=== PATIENT | male | born 1970 | race African-American/Black ===

== ENCOUNTER 2023-07-04 09:31 | Emergency (ER) | payer SELFPAY ==
[2023-07-04] VITALS (10 sets, daily range): BP systolic 157–169; BP diastolic 88–100; PULSE 72–88; RESP 17–22; TEMP 37.2–37.3; O2SAT 91–99
--- NOTE | ~2023-07-04 | XR_ITS ---
Portable chest x-ray Comparison: None Clinical History: Shortness of breath Findings: Lungs are clear, without focal consolidation or pleural effusion. Cardiomediastinal silho uette is stable. Bones and soft tissues are unremarkable. Impression: Normal chest Reviewed, dictated and finalized at [facility]. NING FEEDER Impression: Normal chest
--- NOTE | ~2023-07-04 | CT_ITS ---
Clinical Indication: Shortness of breath CT Scan of the Chest with Contrast: Technique: Contiguous sections were acquired throughout the chest after intravenous administration of 100 cc of Omnipaque 350. Dose reduction technique was used on this scan by utilizing automated expos ure control and iterative reconstruction technique. The dose-length product (DLP) was 345.59 mGy-cm. Findings: There is no evidence of any significant mediastinal, hilar or axillary lymphadenopathy. There is no f illing defect in the pulmonary arterial tree to suggest pulmonary embolus. There is no evidence of ao rtic dissection or aneurysm. There is no evidence of pleural or pericardial effusion. The lungs are clear. No pulmonary nodules or infiltrates are noted. Images through the upper abdomen reveal calcified gallstones. Impression: No evidence of pulmonary embolus, aortic dissection, or aortic aneurysm. Clear lungs. Reviewed, dictated and finalized at [facility]. APPRENTICE Impression: No evidence of pulmonary embolus, aortic dissection, or aortic aneurysm. Clear lungs.
--- NOTE | 2023-07-04 09:36 | ED.AMS ---
HPI - Altered Mental Status General Chief Complaint: Shortness of Breath/Dyspnea Stated Complaint: Asthma Discharge Plan Discharge Follow-up/Referrals: UNKNOWN,DOCTOR [Primary Care Provider] -
[2023-07-04 09:40] LABS: Glucose Point of Care 123 mg/dl (65-105)
--- NOTE | 2023-07-04 09:45 | ECG_ITS ---
Measurements Intervals [place] Rate: 54 P: -56 WI: 113 QRS: 61 QRSD: 102 T: 36 QT: 431 QTc: 409 Interpretive Statements SINUS BRADYCARDIA WITH SHORT WI INTERVAL BASELINE ARTIFACT- I, II, III BORDERLINE ECG NO PREVIOUS ECG AVAILABLE FOR COMPARISON Electronically Signed On 07-04-2023 10:20:07 [employer] MACHINE OPERATOR by Rohith Capps D.O.
--- NOTE | 2023-07-04 09:45 | ED.SOB ---
HPI - SOB/Dyspnea General Chief Complaint: Shortness of Breath/Dyspnea Stated Complaint: Asthma Source: patient Mode of arrival: ambulatory Limitations: no limitations History of Present Illness HPI Narrative: 52-year-old male, smoker with a history of asthma with prior mechanical intubation for respiratory failure secondary to asthma, Seasonal allergies presents to the ER with -- worsening shortness of breath over the past few days. The patient has bronchodilators which have not worked. -- Bilateral wheezing. -- nonproductive cough -- The patient is tearful. Patient was traveling straight from [place] and is on his way to [place] when his car broke down. No chest pain. no fever or chills. has been hospitalized for pneumonia/asthma exacerbation blood sugar was noted to be 126. MD elicited complaint: shortness of breath, cough and anxiety Pertinent past history: asthma Onset (ago): day(s) ( Two days) Timing: constant Severity: severe Exacerbating factors: exertion Relieving factors: nothing Known history of: asthma Associated symptoms: denies other symptoms Related Data Home oxygen amount: none Home Medications Medication Instructions Recorded Confirmed albuterol sulfate 90 mcg/actuation 2 puff inhalation QID PRN 07/04/23 07/04/23 aerosol inhaler (ProAir HFA) Shortness Of Breath Or Wheezing Allergies Allergy/AdvReac Type Severity Reaction Status Date / Time Penicillins Allergy Unknown Verified 07/04/23 11:31 Review of Systems Review of Systems: All systems reviewed & are unremarkable except as noted in HPI and below Constitutional: Constitutional: Reports as per HPI and Reports no additional constitutional complaints Eyes: Eyes: Reports as per HPI and Reports no additional eye complaints ENT: Reports system reviewed and no additional complaints, except as documented and Reports as per HPI Cardiovascular: Cardiovascular: Reports as per HPI and Reports no additional cardiovascular complaints Respiratory: Respiratory: Reports as per HPI, Reports no additional respiratory complaints, Reports cough, Reports dyspnea and Reports wheezing Gastrointestinal: Gastrointestinal: Reports as per HPI and Reports no additional gastrointestinal complaints Genitourinary: Genitourinary: Reports no additional male genitourinary complaints and Reports as per HPI Musculoskeletal: Musculoskeletal: Reports no additional musculoskeletal complaints and Reports as per HPI Integumentary/Breasts: Skin/Breast: Reports system reviewed and no additional complaints, except as docu and Reports as per HPI Neurologic: Reports system reviewed and no additional complaints, except as documented and Reports as per HPI Psychiatric: Psychiatric: Reports no additional psychiatric complaints and Reports as per HPI Comments: Patient denies any history of depression or suicidal ideation. Endocrine: Endocrine: Reports no additional endocrine complaints and Reports as per HPI Hematologic/Lymphatic: Hematologic/Lymphatic: Reports no additional hematologic/lymphatic complaints and Reports as per HPI Allergic/Immunologic: Allergic/Immunologic: Reports no additional allergic/immunologic complaints and Reports as per HPI [facility] Past Medical History Medical History (Updated 07/04/23 @ 11:46 by David Gar MD) Asthma Exam Narrative: hypertension with a blood pressure 157/100. Respiratory rate of 20 and an oxygen saturation of 95% on room air. Patient has increased respiratory rate of 22. Const: General: ill appearing Nutritional Appearance: well nourished Orientation/consciousness: patient oriented x3 Limitations: no limitations HENMT: Head: normal to inspection Ears: external ears normal Face/Nose/Sinus: Normal external nose present Face and sinus: normal facial exam Mouth: Yes Normal oral and palatal mucosa present Throat: posterior oropharynx normal Eyes: Conjunctivae: conjunctivae normal Pupils: Equal,
[2023-07-04] MEDS: IPRATROPIUM 0.5 MG/ALBUTEROL SULFATE 2.5 MG AMPUL.NEB 3 ML INHALATION (09:53)
[2023-07-04] MEDS: methylPREDNISolone SOD SUCC 125 MG VIAL IV PUSH (10:00)
[2023-07-04 10:09] LABS: Base Excess ABG -1.5 mmol/L (0-2); HCO3 ABG 24.2 mmol/L (23-29); Oxygen Content ABG 22.9 %vol (16.0-22.0); Oxygen Saturation ABG 92.1 % (95-97); Oxyhemoglobin 88.7 % (94-100); PCO2 ABG 44.3 mmHg (35-45); PO2 ABG 66.6 mmHg (80-90); Total Hemoglobin 18.4 g/dL (12.0-18.0); pH ABG 7.36 (7.35-7.45)
[2023-07-04 10:10] LABS: Device ROOM AIR; Modified Allen's Test Pass; Site Drawn LEFT RADIAL
[2023-07-04 10:12] LABS: Basophils Absolute Auto 0.06 K/mm3 (0.00-0.10); Basophils Percent Auto 0.6 % (0.0-1.0); Eosinophils Absolute Auto 0.65 K/mm3 (0.02-0.50); Eosinophils Percent Auto 6.8 % (1.0-6.0); Hematocrit 50.7 % (40.0-54.0); Hemoglobin 17.3 g/dL (14.0-18.0); Immature Granulocyte Absolute 0.02 K/mm3 (0.00-0.00); Immature Granulocyte Percent A 0.2 % (0.0-0.0); Lymphocytes Absolute Auto 1.84 K/mm3 (1.10-4.50); Lymphocytes Percent Auto 19.3 % (18.0-42.0); Mean Corpuscular HGB Conc 34.1 g/dL (32.0-36.0); Mean Corpuscular Hemoglobin 31.3 pg (27.0-31.0); Mean Corpuscular Volume 91.7 fL (78.0-102.0); Mean Platelet Volume 8.2 fl (8.7-11.0); Monocytes Absolute Auto 1.13 K/mm3 (0.10-0.90); Monocytes Percent Auto 11.9 % (2.0-11.0); Neutrophils Absolute Auto 5.8 K/mm3 (1.7-7.2); Neutrophils Percent Auto 61.2 % (50.0-70.0); Platelet Count Result 262 K/mm3 (150-420); Red Blood Count 5.53 M/mm3 (4.70-6.10); Red Cell Distribution Width 12.6 % (11.6-14.4); White Blood Count 9.5 K/mm3 (4.8-10.8)
[2023-07-04 10:27] LABS: Partial Thromboplastin Time 30.8 SEC (23.90-30.70); Prothrombin Time 11.4 Seconds (9.50-12.10)
[2023-07-04 10:30] LABS: D Dimer 0.74 mg/L (0.19-0.50)
[2023-07-04 10:31] LABS: SARS-CoV-2 RNA PCR Negative (Negative)
[2023-07-04 10:32] LABS: Influenza A QL RT-PCR Negative (Negative); Influenza B QL RT-PCR Negative (Negative); RSV RNA, RT-PCR Negative (Negative)
[2023-07-04 10:32] LABS: Lactic Acid Reflex 1.3 mmol/L (0.4-2.0)
[2023-07-04 10:34] LABS: Alanine Aminotransferase 48 U/L (16-63); Albumin Level 4.3 g/dL (3.4-5.0); Alkaline Phosphatase 75 U/L (46-116); Anion Gap 11 mmol/L (8-16); Aspartate Amino Transferase 51 U/L (15-37); Bilirubin,Total 0.5 mg/dL (0.00-1.00); Blood Urea Nitrogen 14 mg/dL (7-18); Calcium 8.7 mg/dL (8.5-10.1); Carbon Dioxide 28 mmol/L (21-32); Chloride 99 mmol/L (98-108); Estimated CRCL calculation 74 ml/min; Estimated Glomerular Filt Rate > 60; Glucose 112 mg/dL (70-99); Osmolality Calculated 287 mOsm/kg (285-295); Potassium 3.7 mmol/L (3.5-5.1); Sodium 138 mmol/L (136-145); Total Protein 8.7 g/dL (6.4-8.2)
[2023-07-04 10:36] LABS: Troponin I 10.3 ng/L (0.00-60.4)
[2023-07-04] MEDS: LACTATED RINGERS 1,000 ML 999 ML IV CONT (11:38)
[2023-07-04] MEDS: ALBUTEROL SULFATE (*SP) INHALER 2 PUFF INHALATION (12:09)
== END 2023-07-04 12:48 | disposition home or self-care (01) ==
PROVIDERS: Emergency Provider Internal Medicine Critical Care Medicine
DX: J45.901 Unspecified asthma with (acute) exacerbation (principal); Z20.822 Contact with and (suspected) exposure to COVID-19
CPT/HCPCS: 36415; 36600; 71045; 71275; 80053; 82805; 82948; 83605; 84484; 85025; 85380; 85610; 85730; 87637; 93005; 94640; 96361; 96374; 99284; A9270; J2930; J7120; Q9967